=== PATIENT | male | born 1965 | race Caucasian/White ===

== ENCOUNTER 2023-12-30 07:18 | Emergency (ER) | payer OTHER ==
[~2023-12-30] VITALS: Ht 170.2 cm; Wt 81.8 kg
[2023-12-30 07:30] VITALS: TEMP 97.6
[2023-12-30 07:46] LABS: GLUCOMETER DEV NAME(LOC) ER.7; GLUCOSE,POINT OF CARE 238 MG/DL (70-110)
[2023-12-30] MEDS ORDERED: FURO-152 PO (08:28)
[2023-12-30] MEDS ORDERED: CARV6.2534 PO (08:28)
[2023-12-30] MEDS ORDERED: GLIP-102 PO (08:29)
[2023-12-30] MEDS ORDERED: LISI-661 PO (08:30)
[2023-12-30] MEDS ORDERED: MELO-108 PO (08:31)
[2023-12-30] MEDS ORDERED: METF-283 PO (08:32)
[2023-12-30 09:12] LABS: CALCIUM, TOTAL 9.8 mg/dL (8.8-10.5); CREATININE 1.4 mg/dL (0.60-1.30)
[2023-12-30 09:18] LABS: ALBUMIN 4.1 g/dL (3.4-5.0); BILIRUBIN,TOTAL 0.8 mg/dL (0.1-1.0); TOTAL PROTEIN, SERUM 7.7 g/dL (6.4-8.2)
[2023-12-30 09:20] LABS: TROPONIN I-HIGH SENSITIVITY 6 ng/L (<76)
[2023-12-30 09:52] LABS: BASOPHILS % (AUTO) 0.4 % (0.0-2.0); EOSINOPHILS % (AUTO) 0.7 % (1.0-6.0); HEMATOCRIT 42.3 % (41-53); HEMOGLOBIN 14.6 g/dL (13.5-17.5); LYMPHOCYTES # (AUTO) 1.4 K/uL (1.0-4.8); MEAN CORPUSCULAR HEMOGLOBIN 30.5 pg (26.0-34.0); MEAN CORPUSCULAR HGB CONC 34.5 G/dL (31.0-37.0); MEAN CORPUSCULAR VOLUME 88 fL (80-100); MONOCYTES # (AUTO) 1.2 K/uL (0.1-1.0); MONOCYTES % (AUTO) 10.1 % (2.0-9.0); NEUTROPHILS % (AUTO) 76.8 % (40.0-70.0); PLATELET COUNT (AUTO) 194 K/uL (150-450); RED BLOOD CELL COUNT(AUTO) 4.78 MIL/uL (4.50-5.90); RED CELL DISTRIBUTION WIDTH 14.3 % (11.5-14.5); WHITE BLOOD COUNT (AUTO) 11.7 K/uL (4.5-11.0)
[2023-12-30] MEDS: ASPIRIN 81 MG CHEWABLE TABLET PO ONE (10:31)
[2023-12-30 11:55] VITALS: BP 135/81; PULSE 83; RESP 18
== END 2023-12-30 13:05 | disposition home or self-care (01) ==
LOC: EMS 07:18
DX: R07.9 Chest pain, unspecified (principal); E11.9 Type 2 diabetes mellitus without complications; I10 Essential (primary) hypertension; I50.9 Heart failure, unspecified; I25.2 Old myocardial infarction; F15.90 Other stimulant use, unspecified, uncomplicated
CPT/HCPCS: 71045; 80053; 82962; 83880; 84484; 85025; 85379; 93005; 99285; 36415-L1; 36415-TC